=== PATIENT | female | born 1990 | race African-American/Black ===

== ENCOUNTER 2018-08-02 08:36 | Emergency (ER) | payer OTHER ==
[~2018-08-02] VITALS: Ht 157.5 cm; Wt 68.0 kg
[~2018-08-02 08:36] MED LIST: NOHOMEMEDICATIONS; PHENERGAN 25 MG25 M1 PO; PRENATAL PO; ZOFRAN 4 MG ORAL4 M1 DIS
[2018-08-02 09:15] LABS: BASOPHILS 0.9 % (0.0-2.0); EOSINOPHILS 0.4 % (0.0-3.0); HEMATOCRIT 39.2 % (37.0-47.0); LYMPHOCYTES 19.7 % (24.0-44.0); MCH 33.3 pg (26.0-34.0); MCHC 33.2 g/dL (28.0-37.0); MCV 100.3 fL (80.0-100.0); MONOCYTES 6.5 % (1.0-8.0); PLATELET COUNT 360 thou/uL (150-400); POLYS 72.5 % (36.0-66.0); RBC 3.91 mil/uL (4.20-5.00); RDW 12.2 % (10.5-14.5); WBC 11.1 thou/uL (4.0-11.0)
[2018-08-02 09:19] LABS: CALCIUM 9.3 mg/dL (8.5-10.1); CREATININE 0.6 mg/dL (0.6-1.0); POTASSIUM 3.6 mmol/L (3.5-5.1)
[2018-08-02 10:02] LABS: URINE BILIRUBIN NEGATIVE (Negative); URINE BLOOD NEGATIVE (Negative); URINE CLARITY SL CLOUDY; URINE COLOR YELLOW; URINE GLUCOSE-RANDOM* NEGATIVE (Negative); URINE KETONES NEGATIVE (Negative); URINE LEUKOCYTES-REFLEX 1+ (Negative); URINE NITRITE-REFLEX NEGATIVE (Negative); URINE PROTEIN (DIPSTICK) TRACE (Negative); URINE SPECIFIC GRAVITY 1.015 (1.005-1.035)
[2018-08-02 10:12] LABS: AMORPHOUS URATES Few /LPF (None Seen); CASTS None Seen /LPF (None Seen); SQUAMOUS 4-10 Moderate /LPF (0-3); URINE RBC None Seen /HPF (0-2); URINE WBC-REFLEX 6-15 Few /HPF (0-5)
[2018-08-02] MEDS ORDERED: KEFLEX500 M1 PO (10:17)
[2018-08-02] MEDS ORDERED: ZOFRAN ODT4 MG PO (10:17)
[2018-08-02 10:59] VITALS: BP 105/60
== END 2018-08-02 11:00 | disposition home or self-care (01) ==
LOC: ER 08:36
PROVIDERS: Student in an Organized Health Care Education/Training Program
DX: O23.41 Unspecified infection of urinary tract in pregnancy, first trimester (principal); O21.8 Other vomiting complicating pregnancy; Z3A.01 Less than 8 weeks gestation of pregnancy; Z87.891 Personal history of nicotine dependence

== ENCOUNTER 2018-08-09 08:41 | Emergency (ER) | payer OTHER ==
[~2018-08-09] VITALS: Ht 154.9 cm; Wt 68.0 kg
[~2018-08-09 08:41] MED LIST changes: +KEFLEX500 M1 PO; +ZOFRAN ODT4 MG PO
[2018-08-09 09:24] LABS: URINE BILIRUBIN NEGATIVE (Negative); URINE BLOOD NEGATIVE (Negative); URINE CLARITY CLOUDY; URINE COLOR YELLOW; URINE GLUCOSE-RANDOM* NEGATIVE (Negative); URINE KETONES NEGATIVE (Negative); URINE LEUKOCYTES-REFLEX NEGATIVE (Negative); URINE NITRITE-REFLEX NEGATIVE (Negative); URINE PROTEIN (DIPSTICK) NEGATIVE (Negative); URINE UROBILINOGEN 0.2 E.U./dl (0.2-1.0)
[2018-08-09 09:28] VITALS: BP 110/78
[2018-08-09] MEDS ORDERED: PRENATAL COMPL1 EACH PO (09:39)
[2018-08-09] MEDS ORDERED: MONISTAT 7 COM1 EAC1 VAG (09:39)
[2018-08-09] MEDS ORDERED: ZOFRAN ODT4 MG PO (09:39)
== END 2018-08-09 10:00 | disposition home or self-care (01) ==
LOC: ER 08:41
PROVIDERS: Emergency Medicine
DX: O98.811 Other maternal infectious and parasitic diseases complicating pregnancy, first trimester (principal); O21.9 Vomiting of pregnancy, unspecified; B37.9 Candidiasis, unspecified; Z87.891 Personal history of nicotine dependence; Z3A.08 8 weeks gestation of pregnancy

== ENCOUNTER 2018-10-03 14:25 | Emergency (ER) | payer OTHER ==
[~2018-10-03] VITALS: Ht 157.5 cm; Wt 72.6 kg
[~2018-10-03 14:25] MED LIST changes: +MONISTAT 7 COM1 EAC1 VAG; +PRENATAL COMPL1 EACH PO
[2018-10-03 14:49] LABS: URINE BILIRUBIN NEGATIVE (Negative); URINE BLOOD NEGATIVE (Negative); URINE COLOR YELLOW; URINE GLUCOSE-RANDOM* NEGATIVE (Negative); URINE KETONES NEGATIVE (Negative); URINE NITRITE-REFLEX NEGATIVE (Negative); URINE PROTEIN (DIPSTICK) NEGATIVE (Negative); URINE SPECIFIC GRAVITY 1.015 (1.005-1.035)
[2018-10-03 14:51] LABS: URINE LEUKOCYTES-REFLEX 2+ (Negative)
[2018-10-03 14:53] LABS: URINE CLARITY CLOUDY
[2018-10-03 14:54] LABS: BACTERIA-REFLEX 1-9 Few /HPF (None Seen); SQUAMOUS >10 Many /LPF (0-3); URINE RBC None Seen /HPF (0-2); URINE WBC-REFLEX 6-15 Few /HPF (0-5)
[2018-10-03 14:55] LABS: CASTS None Seen /LPF (None Seen); CRYSTALS None Seen /LPF (None Seen)
[2018-10-03 15:30] LABS: CALCIUM 8.8 mg/dL (8.5-10.1); CREATININE 0.6 mg/dL (0.6-1.0); POTASSIUM 3.9 mmol/L (3.5-5.1)
[2018-10-03 17:51] LABS: URINE BILIRUBIN NEGATIVE (Negative); URINE BLOOD NEGATIVE (Negative); URINE CLARITY CLEAR; URINE COLOR YELLOW; URINE GLUCOSE-RANDOM* NEGATIVE (Negative); URINE KETONES TRACE (Negative); URINE LEUKOCYTES-REFLEX TRACE (Negative); URINE NITRITE-REFLEX NEGATIVE (Negative); URINE PROTEIN (DIPSTICK) NEGATIVE (Negative); URINE UROBILINOGEN 0.2 E.U./dl (0.2-1.0)
[2018-10-03 18:04] LABS: SQUAMOUS 0-3 Few /LPF (0-3)
[2018-10-03 18:05] LABS: BACTERIA-REFLEX None Seen /HPF (None Seen); URINE RBC None Seen /HPF (0-2); URINE WBC-REFLEX 0-5 Rare /HPF (0-5)
[2018-10-03 18:06] LABS: AMORPHOUS URATES Few /LPF (None Seen); CRYSTALS None Seen /LPF (None Seen)
[2018-10-03 18:20] VITALS: BP 106/43
== END 2018-10-03 18:21 | disposition home or self-care (01) ==
LOC: ER 14:25
PROVIDERS: Emergency Medicine
DX: O20.0 Threatened abortion (principal); Z3A.17 17 weeks gestation of pregnancy; Z87.891 Personal history of nicotine dependence

== ENCOUNTER 2018-11-05 10:51 | Emergency (ER) | payer OTHER ==
[~2018-11-05] VITALS: Ht 157.5 cm; Wt 79.4 kg
[2018-11-05 11:32] LABS: URINE BILIRUBIN NEGATIVE (Negative); URINE BLOOD NEGATIVE (Negative); URINE CLARITY CLEAR; URINE COLOR YELLOW; URINE GLUCOSE-RANDOM* NEGATIVE (Negative); URINE KETONES NEGATIVE (Negative); URINE LEUKOCYTES-REFLEX NEGATIVE (Negative); URINE NITRITE-REFLEX NEGATIVE (Negative); URINE PROTEIN (DIPSTICK) NEGATIVE (Negative); URINE UROBILINOGEN 0.2 E.U./dl (0.2-1.0)
[2018-11-05 12:23] LABS: ABSOLUTE NEUTROPHILS 7.8 thou/uL (1.4-8.2); BASOPHILS 0.6 % (0.0-2.0); EOSINOPHILS 1.2 % (0.0-3.0); HEMATOCRIT 32.6 % (37.0-47.0); HEMOGLOBIN 11.2 gm/dL (12.0-15.0); LYMPHOCYTES 20.3 % (24.0-44.0); MCH 34.6 pg (26.0-34.0); MCHC 34.3 g/dL (28.0-37.0); MCV 100.9 fL (80.0-100.0); MONOCYTES 7.8 % (1.0-8.0); PLATELET COUNT 282 thou/uL (150-400); POLYS 70.1 % (36.0-66.0); RBC 3.23 mil/uL (4.20-5.00); RDW 12.4 % (10.5-14.5); WBC 11.2 thou/uL (4.0-11.0)
[2018-11-05 12:56] LABS: CALCIUM 8.7 mg/dL (8.5-10.1); CREATININE 0.5 mg/dL (0.6-1.0); POTASSIUM 3.9 mmol/L (3.5-5.1)
[2018-11-05 13:01] LABS: ALBUMIN 2.7 g/dL (3.4-5.0); TOTAL BILIRUBIN 0.6 mg/dL (<0.1-1.0); TOTAL PROTEIN 6.3 g/dL (6.4-8.2)
[2018-11-05 13:22] VITALS: BP 99/55
== END 2018-11-05 13:22 | disposition home or self-care (01) ==
LOC: ER 10:51
PROVIDERS: Emergency Medicine
DX: O20.0 Threatened abortion (principal); Z3A.22 22 weeks gestation of pregnancy; Z87.891 Personal history of nicotine dependence

== ENCOUNTER 2019-11-30 23:40 | Emergency (ER) | payer OTHER ==
[~2019-11-30] VITALS: Ht 157.5 cm; Wt 83.9 kg
[2019-11-30 23:47] VITALS: BP 127/83
== END 2019-12-01 02:05 | disposition home or self-care (01) ==
LOC: ER 23:40
DX: Z71.1 Person with feared health complaint in whom no diagnosis is made (principal); Z87.891 Personal history of nicotine dependence

== ENCOUNTER 2020-09-13 17:15 | Emergency (ER) | payer OTHER ==
[~2020-09-13] VITALS: Ht 157.5 cm; Wt 83.9 kg
[2020-09-13 17:16] VITALS: BP 139/85
[2020-09-13] MEDS ORDERED: BACTRIM DS TAB1 EAC1 PO (19:42)
[2020-09-13] MEDS ORDERED: KEFLEX500 M1 PO (19:42)
== END 2020-09-13 20:00 | disposition home or self-care (01) ==
LOC: ER 17:15
DX: L02.31 Cutaneous abscess of buttock (principal); Z87.891 Personal history of nicotine dependence

== ENCOUNTER 2020-10-18 12:24 | Emergency (ER) | payer OTHER ==
[~2020-10-18] VITALS: Ht 157.5 cm; Wt 79.4 kg
[~2020-10-18 12:24] MED LIST changes: +BACTRIM DS TAB1 EAC1 PO
[2020-10-18 14:17] VITALS: BP 120/77
[2020-10-18] MEDS ORDERED: DOXYCYCLINE 10100 MG PO (14:20)
== END 2020-10-18 14:25 | disposition home or self-care (01) ==
LOC: ER 12:24
DX: L02.31 Cutaneous abscess of buttock (principal); Z87.891 Personal history of nicotine dependence

== ENCOUNTER 2021-02-05 09:28 | Emergency (ER) | payer OTHER ==
[~2021-02-05] VITALS: Ht 157.5 cm; Wt 77.1 kg
[~2021-02-05 09:28] MED LIST changes: +DOXYCYCLINE 10100 MG PO
[2021-02-05 10:33] LABS: ABSOLUTE NEUTROPHILS 4.9 thou/uL (1.4-8.2); BASOPHILS 1.2 % (0.0-2.0); EOSINOPHILS 1.7 % (0.0-3.0); HEMATOCRIT 34.2 % (37.0-47.0); HEMOGLOBIN 11.3 gm/dL (12.0-15.0); LYMPHOCYTES 28.5 % (24.0-44.0); MCH 29.3 pg (26.0-34.0); MCHC 33.1 g/dL (28.0-37.0); MCV 88.4 fL (80.0-100.0); PLATELET COUNT 423 thou/uL (150-400); POLYS 60.6 % (36.0-66.0); RBC 3.86 mil/uL (4.20-5.00); RDW 15.9 % (10.5-14.5)
[2021-02-05 10:41] LABS: CALCIUM 8.8 mg/dL (8.5-10.1); CREATININE 0.8 mg/dL (0.6-1.0); POTASSIUM 4.2 mmol/L (3.5-5.1)
[2021-02-05 10:47] LABS: ALBUMIN 3.3 g/dL (3.4-5.0); DIRECT BILIRUBIN 0.1 mg/dL (<0.1-0.2); TOTAL BILIRUBIN 0.7 mg/dL (0.2-1.0); TOTAL PROTEIN 7.2 g/dL (6.4-8.2)
[2021-02-05 10:48] LABS: URINE BILIRUBIN NEGATIVE (Negative); URINE BLOOD NEGATIVE (Negative); URINE CLARITY CLEAR; URINE COLOR YELLOW; URINE GLUCOSE-RANDOM* NEGATIVE (Negative); URINE KETONES NEGATIVE (Negative); URINE LEUKOCYTES-REFLEX NEGATIVE (Negative); URINE NITRITE-REFLEX NEGATIVE (Negative); URINE PROTEIN (DIPSTICK) NEGATIVE (Negative); URINE UROBILINOGEN 0.2 E.U./dl (0.2-1.0)
[2021-02-05] MEDS ORDERED: MOBIC15 MG PO (11:47)
[2021-02-05 11:51] VITALS: BP 127/77
== END 2021-02-05 11:51 | disposition home or self-care (01) ==
LOC: ER 09:28
PROVIDERS: Emergency Medicine
DX: R10.30 Lower abdominal pain, unspecified (principal); F17.210 Nicotine dependence, cigarettes, uncomplicated